=== PATIENT | female | born 1995 | race Two or more races ===

== ENCOUNTER 2025-04-30 00:41 | Emergency (ER) | payer OTHER, MEDICAID, SELFPAY ==
[2025-04-30 00:44] VITALS: BMI 40.7
[2025-04-30 00:55] VITALS: BP 163/103; PULSE 84; RESP 18; TEMP 36.7; O2SAT 99
--- NOTE | 2025-04-30 00:57 | XR_ITS ---
Examination: Toes, right foot first digit 3 views Technique: Toes AP oblique lateral 3 views Date and time of exam: April 30, 2025, 1319 hours INDICATIONS: Redness swelling and pain beginning 2 days ago. FINDINGS: No acute fracture No dislocation No foreign body IMPRESSION: No acute fracture
--- NOTE | 2025-04-30 00:58 | PD.EDANKLE ---
Lower Extremity Injury RME/HPI General Chief Complaint: Ankle/Foot Injury Stated Complaint: RIGHT BIG TO PROBLEM Time Seen by Provider: 04/30/25 00:56 Arrival date/time: 04/30/25 00:41 RME / HPI RME / HPI Narrative: See [facility] for Dr. Roy's HPI Documentation. Related Data Home Medications ?Medication ?Instructions ?Recorded ?Confirmed vit no.95-ferrous 1 tab PO QDAY 11/18/17 11/21/21 fumarate 28 mg-folic acid 800 mcg tablet () amoxicillin 500 mg capsule 1 cap PO BID EAR INFECTION 12/02/21 12/02/21 Previous Rx's ?Medication ?Instructions ?Recorded amoxicillin 875 mg-potassium 1 tab PO BID #20 tabs 04/30/25 clavulanate 125 mg tablet Allergies Allergy/AdvReac Type Severity Reaction Status Date / Time No Known Allergies Allergy Verified 04/30/25 00:42 Review of Systems Review of Systems Systems Reviewed: All systems reviewed, normal except as documented Past Medical History Past Medical History OTHER HISTORY: Positive Hospitalization (CHILDBIRTH.) and Chicken Pox Family History FAMILY HISTORY: Positive Family Cardiac Disorders (uncle- anuerysm. UNCLE-STROKE), Family Cancer (MATERNAL GM-stomach ca.) and Family Surgery (AUNT-arm and shoulder surgery. grandfather maternal had heart bypass.) Surgical History SURGICAL: Positive Section (X1) ED Exam Narrative Physical exam: See [facility] for Dr. Roy's Physical Exam Documentation. Course Quality Measures none Orders Category Date Time Status XR toe RT min 2V Stat Exams 04/30/25 00:57 Completed Amoxicillin/Pot Clav 875 [Augmentin 875] Med 04/30/25 01:54 Discontinued 1 tab PO X1 ONE Vital Signs Vital signs: Vital Signs Temperature 98.1 F 04/30/25 00:55 Pulse Rate 84 04/30/25 00:55 Respiratory Rate 18 04/30/25 00:55 Blood Pressure 163/103 H 04/30/25 00:55 Pulse Oximetry (%) 99 04/30/25 00:55 Oxygen Delivery Method Room Air 04/30/25 00:55 Extremity Injury, Lower MDM Narrative [facility] Narrative:: This section includes all my notes and documentations, including HPI, PE, and ED course. Buster Ryo MD HPI: 29 y/o female presents with 3 days of right big toe pain, swelling, and foul smelling discharge. Stubbed the toe about a month ago. No fever or chills. No other complaints. ROS: All negative except as documented in HPI. Physical Exam: General: Alert and oriented. No acute distress. Eyes: Conjunctivae and lids clear. ENT: No nasal congestion. Neck: Supple. Lungs: No respiratory distress. Skin: Warm and dry. Neuro: Alert and oriented X 3. Right Great Toe: Remarkable for erythema/edema/calor/tenderness. I reviewed all diagnostic test results: My interpretation of the toe x-rays is no fracture. At this point, diagnoses include: Cellulitis of great toe of right foot Treatment here included: Augmentin 875 Recommended outpatient treatment. Based on my best medical judgment, made decision no further evaluation or treatment indicated at this time. Patient understands and agrees to the discharge instructions customized and printed, see below. Discharge Instructions from Dr. Roy printed for you: 1. Take Augmentin to kill the germs causing your right big toe infection. 2. To help the healing process, minimal weightbearing and elevate above the waist level for 3 days. 3. Ibuprofen 800 mg every 6-8 hours today and tomorrow to decrease inflammation then as needed. 4. See a private doctor next week if not completely better. 5. Seek immediate medical care with fever, spreading redness, or with any concerns. Buster Roy MD Patient data External records reviewed:: [facility] previous records (No prior ED records available for review.) Clinical information provided by:: patient Social determinants that could affect healthcare access:: none Patient has the following chronic illnesses:: None reported How is presenting disease/condition affected by chronic disease/condition?: no chronic disease Evaluation data The following diagnostics were reviewed and interpreted by me:: radiology exam(s) Lab and/or radiology exams considered but not ordered:: None Interpretation Summary: I reviewed all diagnostic test results: My interpretation of the toe x-rays is no fracture. Medications / Prescriptions Medications or Prescriptions considered but not ordered:: None Medication administrations:: Medication Administration History Discontinued Medications Amoxicillin/Clavulanate Potassium (Amoxicillin/Pot Clav 875 Tablet) 1 tab PO X1 ONE Stop: 04/30/25 01:55 Last Admin: 04/30/25 02:03 Dose: 1 tab Documented By: SHIVAM Augmentin 875 mg Consultations Consultation(s) initiated? (list below): No Diagnosis Extremity Injury, Lower Differential Diagnosis: fracture of toe and other (Cellulitis ) Most likely diagnosis given after review of the tests above:: Cellulitis of great toe of right foot Admission Indicated Admission indicated?: not indicated Explain why admission is indicated or not indicated:: With no condition needing emergent intervention, there was no indication for admission. Admission Request Was there a request for admission?: No Disposition Plan Disposition Plan: Discharge Discharge Attestation Discharge Attestation: The patient and all family members were given an opportunity to ask questions and understood the discharge instructions. Discharge instructions specifically effects, indications for sooner follow up or return to the emergency department, and the expected course of current diagnosis. Patient condition: Stable Discharge Plan Plan Patient Disposition: HOME (Self Care) Prescriptions/Referrals Prescriptions/Med Rec: New amoxicillin-pot clavulanate 875-125 mg tablet 1 tab PO BID Qty: 20 0RF No Action amoxicillin 500 mg capsule 1 cap PO BID PNV no.95-ferrous fumarate-FA [] 28 mg iron- 800 mcg Tablet 1 tab PO QDAY Problem List Clinical Impression: Cellulitis of great toe of right foot Patient/Caregiver Discharge Instructions Discharge Activity: activity as tolerated Education Materials: ED Cellulitis Additional Instructions: Discharge Instructions from Dr. Roy printed for you: 1. Take Augmentin to kill the germs causing your right big toe infection. 2. To help the healing process, minimal weightbearing and elevate above the waist level for 3 days. 3. Ibuprofen 800 mg every 6-8 hours today and tomorrow to decrease inflammation then as needed. 4. See a private doctor next week if not completely better. 5. Seek immediate medical care with fever, spreading redness, or with any concerns. Print Language: Vietnamese Stand Alone Forms: Demi Award Info., Patient Portal Info Letter
[2025-04-30] MEDS: AMOXICILLIN/POT CLAV 875 TABLET 1 TAB PO (02:03)
== END 2025-04-30 02:05 | disposition home or self-care (01) ==
LOC: SERX 05:02
PROVIDERS: Emergency Provider Emergency Medicine; PCP Family Medicine
DX: S99.921A Unspecified injury of right foot, initial encounter (principal); L03.031 Cellulitis of right toe; W22.8XXA Striking against or struck by other objects, initial encounter
CPT/HCPCS: 73660; 99282; A9270